=== PATIENT | female | born 1975 | race Caucasian/White ===

== ENCOUNTER 2020-11-01 13:35 | Emergency (ER) | payer OTHER ==
[~2020-11-01] VITALS: Ht 167.6 cm; Wt 77.6 kg
[2020-11-01] MEDS ORDERED: COZAAR25 MG (13:47)
[2020-11-01] MEDS ORDERED: NAPROXEN375 MG PO (17:32)
[2020-11-01] MEDS ORDERED: CLEOCIN HCL300 MG PO (17:32)
[2020-11-01] MEDS ORDERED: INTESTINEX680 M2 PO (18:25)
== END 2020-11-01 20:12 | disposition home or self-care (01) ==
LOC: ER 13:35
DX: L02.214 Cutaneous abscess of groin (principal); R50.9 Fever, unspecified

== ENCOUNTER 2021-01-03 10:42 | Emergency (ER) | payer OTHER ==
[~2021-01-03] VITALS: Ht 167.6 cm; Wt 81.2 kg
[~2021-01-03 10:42] MED LIST: CLEOCIN HCL300 MG PO; COZAAR25 MG; INTESTINEX680 M2 PO; NAPROXEN375 MG PO
[2021-01-03] MEDS ORDERED: FLAGYL500MG PO (17:24)
[2021-01-03] MEDS ORDERED: PEPCID AC20 MG PO (17:24)
[2021-01-03] MEDS ORDERED: LOPERAMIDE2 M1 PO (17:24)
[2021-01-03] MEDS ORDERED: LEVALBUTER1.25 MG/0. IH (17:24)
[2021-01-03] MEDS ORDERED: CIPRO500 MG PO (17:24)
[2021-01-03] MEDS ORDERED: INTESTINEX680 M1 PO (17:24)
== END 2021-01-03 18:00 ==
LOC: ER 10:42
DX: K52.9 Noninfective gastroenteritis and colitis, unspecified (principal)

== ENCOUNTER 2021-04-02 07:19 | Day surgery (SDC) | payer OTHER ==
[~2021-04-02 07:19] MED LIST changes: +CIPRO500 MG PO; +FLAGYL500MG PO; +INTESTINEX680 M1 PO; +LEVALBUTER1.25 MG/0. IH; +LOPERAMIDE2 M1 PO; +PEPCID AC20 MG PO
[2021-04-02] MEDS ORDERED: IBU600 MG PO (11:47)
== END 2021-04-02 13:45 | disposition home or self-care (01) ==
LOC: CIR.AMB 07:19
PROVIDERS: ATTEND Obstetrics & Gynecology Gynecology
DX: N84.0 Polyp of corpus uteri (principal); N72 Inflammatory disease of cervix uteri; Z20.822 Contact with and (suspected) exposure to COVID-19

== ENCOUNTER 2021-10-02 23:26 | Emergency (ER) | payer OTHER ==
[~2021-10-02] VITALS: Ht 167.6 cm; Wt 74.8 kg
[~2021-10-02 23:26] MED LIST changes: +IBU600 MG PO
[2021-10-03] MEDS ORDERED: KETO10TA2 PO ×2 (05:00→05:01)
[2021-10-03] MEDS ORDERED: CEPHALEXIN500 MG PO (05:01)
== END 2021-10-03 05:07 ==
LOC: ER 23:26
DX: N39.0 Urinary tract infection, site not specified (principal); R10.2 Pelvic and perineal pain; I10 Essential (primary) hypertension

== ENCOUNTER 2022-01-28 02:45 | Inpatient (IN) | payer OTHER ==
[~2022-01-28] VITALS: Ht 167.6 cm; Wt 81.6 kg
[~2022-01-28 02:45] MED LIST changes: +CEPHALEXIN500 MG PO; +KETO10TA2 PO
--- NOTE | 2022-01-28 03:00 | NUR ---
PTE VERBALIZA TENER LACEY DOLOR ABDOMINAL Y DOLOR DE ESPALDA MEDIA DESDE HOY DE [place] DE LA [address] [place]. PTE SE OBSERVA ALERTA Y ORIENTADO X3. PTE VERBALIZA QUE ELIN NAUSEAS
--- NOTE | 2022-01-28 04:41 | NUR ---
PACIENTE ALERTA Y ORIENTADA X3. SE ORIENTA SOBRE TX A RECIBRI Y REFIRIO ENTENDER. SE ADMINISTRA MEDICAMENTOS ORDENADOS POR MD. SE REALIZA MUESTRAS DE LABORATORIO BAJO MEDIDAS ASEPTICAS.
--- NOTE | 2022-01-28 07:27 | NUR ---
PTE ALERTA,ESTABLE Y ORIENTADA.SE EDUCA SOBRE EL TRATAMIENTO QUE RECIBIRA EN EL HOSPITAL Y ESTA REFIERE ENTENDER
[2022-02-03] MEDS ORDERED: LOSARTAN POTASS25 MG PO (10:14)
[2022-02-03] MEDS ORDERED: CIPRO500 MG PO ×2 (10:15→10:31)
[2022-02-03] MEDS ORDERED: METRONIDAZOLE500 MG PO ×2 (10:15→10:31)
== END 2022-02-03 14:13 | disposition home or self-care (01) | DRG 446 ==
LOC: ER 02:45 → MEDI 14:37
PROVIDERS: ADMIT Internal Medicine; ATTEND Internal Medicine
PROC: 02HV33Z Insertion of Infusion Device into Superior Vena Cava, Percutaneous Approach (ICD-10-PCS; principal; 2022-01-30)
DX: K80.00 Calculus of gallbladder with acute cholecystitis without obstruction (principal); E86.0 Dehydration; I10 Essential (primary) hypertension

== ENCOUNTER 2022-02-18 12:52 | Outpatient (CLI) | payer OTHER ==
[~2022-02-18 12:52] MED LIST changes: +LOSARTAN POTASS25 MG PO; +METRONIDAZOLE500 MG PO
== END 2022-02-18 12:56 | disposition home or self-care (01) ==
LOC: MAMO-SONO 12:52
PROVIDERS: ATTEND Surgery
DX: N60.11 Diffuse cystic mastopathy of right breast (principal); N60.12 Diffuse cystic mastopathy of left breast

== ENCOUNTER 2022-02-21 06:00 | Day surgery (SDC) | payer OTHER | END 2022-02-21 17:10 | disposition home or self-care (01) | LOC: CIR.AMB 06:00 | PROVIDERS: ATTEND Specialist | DX: K80.10 Calculus of gallbladder with chronic cholecystitis without obstruction (principal); Z20.822 Contact with and (suspected) exposure to COVID-19; I10 Essential (primary) hypertension ==

== ENCOUNTER 2022-05-14 13:47 | Outpatient (CLI) | payer OTHER | END 2022-05-14 13:50 | disposition home or self-care (01) | LOC: SONOGRAMA 13:47 | PROVIDERS: ATTEND Obstetrics & Gynecology Gynecology | DX: N92.1 Excessive and frequent menstruation with irregular cycle (principal) ==

== ENCOUNTER 2023-03-19 11:20 | Emergency (ER) | payer OTHER ==
[~2023-03-19] VITALS: Ht 167.6 cm; Wt 79.4 kg
[2023-03-19 13:19] LABS: HEMATOCRIT 38.9 % (36.0-45.00); MEAN CORPUSCULAR HEMOGLOBIN 29.1 pg (27.00-32.0); MEAN CORPUSCULAR HGB CONC 33.5 g/dl (32.0-36.0); PLATELET COUNT 236 K/uL (150-450); RED BLOOD COUNT 4.47 M/uL (4.00-6.00); RED CELL DISTRIBUTION WIDTH 13.6 % (11.5-14.5)
[2023-03-19] MEDS ORDERED: ZYRTEC10 MG PO (15:10)
[2023-03-19] MEDS ORDERED: ZITHROMAX500 MG PO (15:10)
[2023-03-19] MEDS ORDERED: TUSNEL LIQUID178 ML PO (15:10)
== END 2023-03-19 15:47 | disposition home or self-care (01) ==
LOC: ER 11:20
PROVIDERS: General Practice
DX: B34.9 Viral infection, unspecified (principal)

== ENCOUNTER 2023-05-07 09:45 | Outpatient (CLI) | payer OTHER ==
[~2023-05-07 09:45] MED LIST changes: +TUSNEL LIQUID178 ML PO; +ZITHROMAX500 MG PO; +ZYRTEC10 MG PO
== END 2023-05-07 09:47 | disposition home or self-care (01) ==
LOC: MAMO-SONO 09:45
PROVIDERS: ATTEND Obstetrics & Gynecology Gynecology
DX: N60.11 Diffuse cystic mastopathy of right breast (principal); N60.12 Diffuse cystic mastopathy of left breast

== ENCOUNTER → 2023-05-23 12:56 | Outpatient (CLI) | payer OTHER ==
[2023-05-23 14:14] LABS: HEMATOCRIT 38.4 % (36.0-45.00); HEMOGLOBIN 12.9 g/dL (12.0-15.00); MEAN CELL VOLUME 86.7 fL (80.00-100.00); MEAN CORPUSCULAR HEMOGLOBIN 29.2 pg (27.00-32.0); MEAN CORPUSCULAR HGB CONC 33.6 g/dl (32.0-36.0); PLATELET COUNT 217 K/uL (150-450); RED BLOOD COUNT 4.43 M/uL (4.00-6.00); RED CELL DISTRIBUTION WIDTH 13.8 % (11.5-14.5)
[2023-05-23 14:18] LABS: URINE APPEARANCE Clear; URINE BILIRRUBIN Negative (NEGATIVE); URINE BLOOD Small; URINE COLOR Yellow; URINE GLUCOSE Negative (NEGATIVE); URINE LEUKOCYTE Negative; URINE NITRATE Negative; URINE PROTEIN Negative (NEGATIVE); URINE UROBILINOGEN 0.2 E.U./dl
[2023-05-23 14:21] LABS: URINE BACTERIA 7.5 uL (0.0-1933); URINE EPITHELIAL CELLS 3.2 uL (0.0-38.8); URINE RBC 62.6 uL (0.0-20.8); URINE WBC 4.4 uL (0.0-23.2)
[2023-05-23 14:50] LABS: ALBUMIN 4.1 gm/dL (3.4-5.0); BILIRUBIN TOTAL 0.69 mg/dL (0.3-1.2); CALCIUM 8.9 mg/dL (8.5-10.1); CHOL HDL RATIO 3.5 (0-5.0); CREATININE SERUM 0.68 mg/dL (0.55-1.02); GFR 92.74; GLOBULINA 3.4 G/DL (2.4-3.5); POTASSIUM 3.93 mEq/L (3.5-5.1); TOTAL PROTEIN 7.5 gm/dL (6.4-8.2); TSH 0.874 uIU/mL (0.358-3.74)
== END | disposition home or self-care (01) ==
LOC: LAB 12:56
PROVIDERS: ATTEND Obstetrics & Gynecology Gynecology
DX: D64.9 Anemia, unspecified (principal); E03.9 Hypothyroidism, unspecified; E55.9 Vitamin D deficiency, unspecified; E78.5 Hyperlipidemia, unspecified; Z12.11 Encounter for screening for malignant neoplasm of colon; N39.0 Urinary tract infection, site not specified; Z11.3 Encounter for screening for infections with a predominantly sexual mode of transmission; N92.1 Excessive and frequent menstruation with irregular cycle

== ENCOUNTER 2023-05-23 13:25 | Outpatient (CLI) | payer OTHER | END 2023-05-23 13:27 | disposition home or self-care (01) | LOC: SONOGRAMA 13:25 | PROVIDERS: ATTEND Obstetrics & Gynecology Gynecology | DX: N92.1 Excessive and frequent menstruation with irregular cycle (principal) ==

== ENCOUNTER → 2023-05-29 13:59 | Outpatient (CLI) | payer OTHER ==
[2023-05-29 14:42] LABS: ob NEGATIVE (NEGATIVE)
== END | disposition home or self-care (01) ==
LOC: LAB 13:59
PROVIDERS: ATTEND Obstetrics & Gynecology Gynecology
DX: D64.9 Anemia, unspecified (principal); E03.9 Hypothyroidism, unspecified; E55.9 Vitamin D deficiency, unspecified; E78.5 Hyperlipidemia, unspecified; Z12.11 Encounter for screening for malignant neoplasm of colon; N39.0 Urinary tract infection, site not specified; Z11.3 Encounter for screening for infections with a predominantly sexual mode of transmission

== ENCOUNTER 2024-01-16 09:46 | Emergency (ER) | payer OTHER ==
[~2024-01-16] VITALS: Ht 167.6 cm; Wt 73.9 kg
[2024-01-16] MEDS ORDERED: DEXAMETHASONE SODIUM PHOSPHATE 4 MG/ML VIAL IM STA (10:12)
== END 2024-01-16 13:54 | disposition home or self-care (01) ==
LOC: ER 09:46
DX: R42 Dizziness and giddiness (principal); I10 Essential (primary) hypertension

== ENCOUNTER 2024-05-21 08:08 | Outpatient (CLI) | payer OTHER ==
[2024-05-21 09:15] LABS: HEMATOCRIT 39.4 % (36.0-45.00); HEMOGLOBIN 12.9 g/dL (12.0-15.00); MEAN CORPUSCULAR HEMOGLOBIN 29.2 pg (27.00-32.0); MEAN CORPUSCULAR HGB CONC 32.8 g/dl (32.0-36.0); PLATELET COUNT 265 K/uL (150-450); RED BLOOD COUNT 4.42 M/uL (4.00-6.00); RED CELL DISTRIBUTION WIDTH 13.6 % (11.5-14.5)
[2024-05-21 09:16] LABS: URINE APPEARANCE Clear; URINE BILIRRUBIN Negative (NEGATIVE); URINE BLOOD Moderate; URINE COLOR Yellow; URINE GLUCOSE Negative (NEGATIVE); URINE KETONE Negative (NEGATIVE); URINE LEUKOCYTE Small; URINE NITRATE Negative; URINE PROTEIN Negative (NEGATIVE); URINE UROBILINOGEN 0.2 E.U./dl
[2024-05-21 09:20] LABS: URINE BACTERIA 324.3 uL (0.0-1933); URINE EPITHELIAL CELLS 36.7 uL (0.0-38.8); URINE RBC 38.5 uL (0.0-20.8); URINE WBC 108.1 uL (0.0-23.2)
[2024-05-21 09:41] LABS: INR 0.97; PARTIAL THROMBOPLASTIN TIME 31.9 SECONDS (22.0-34.0); PROTHROMBIN TIME 10.6 SECONDS (9.0-11.5)
[2024-05-21 10:36] LABS: ALBUMIN 3.9 gm/dL (3.4-5.0); BILIRUBIN TOTAL 0.42 mg/dL (0.3-1.2); CALCIUM 8.7 mg/dL (8.5-10.1); CHOL HDL RATIO 2.7 (0-5.0); CREATININE SERUM 0.75 mg/dL (0.55-1.02); GFR 82.48; GLOBULINA 3.6 G/DL (2.4-3.5); POTASSIUM 3.81 mEq/L (3.5-5.1); TOTAL PROTEIN 7.5 gm/dL (6.4-8.2); TSH 1.21 uIU/mL (0.358-3.74)
[2024-05-24 09:16] LABS: FOLLICLE STIMULATING HORMONE 8.1 mIU/mL (.); PROGESTERONA < 0.1 ng/mL (.)
== END 2024-05-21 08:13 | disposition home or self-care (01) ==
LOC: LAB 08:08
PROVIDERS: ATTEND Obstetrics & Gynecology Gynecology
DX: D64.9 Anemia, unspecified (principal); E03.9 Hypothyroidism, unspecified; E55.9 Vitamin D deficiency, unspecified; E78.5 Hyperlipidemia, unspecified; Z12.11 Encounter for screening for malignant neoplasm of colon; N92.1 Excessive and frequent menstruation with irregular cycle

== ENCOUNTER 2024-05-26 08:22 | Outpatient (CLI) | payer OTHER | END 2024-05-26 08:28 | disposition home or self-care (01) | LOC: MAMO-SONO 08:22 | PROVIDERS: ATTEND Obstetrics & Gynecology Gynecology | DX: N60.11 Diffuse cystic mastopathy of right breast (principal); N60.12 Diffuse cystic mastopathy of left breast ==

== ENCOUNTER 2024-05-27 13:55 | Outpatient (CLI) | payer OTHER ==
[2024-05-27 14:18] LABS: ob NEGATIVE (NEGATIVE)
== END 2024-05-27 13:58 | disposition home or self-care (01) ==
LOC: LAB 13:55
PROVIDERS: ATTEND Obstetrics & Gynecology Gynecology
DX: D64.9 Anemia, unspecified (principal); E03.9 Hypothyroidism, unspecified; E55.9 Vitamin D deficiency, unspecified; E78.5 Hyperlipidemia, unspecified; Z12.11 Encounter for screening for malignant neoplasm of colon; N92.1 Excessive and frequent menstruation with irregular cycle

== ENCOUNTER 2024-05-27 20:36 | Emergency (ER) | payer OTHER ==
[~2024-05-27] VITALS: Ht 167.6 cm; Wt 68.0 kg
[2024-05-27] MEDS ORDERED: DEXAMETHASONE SODIUM PHOSPHATE 4 MG/ML VIAL IM STA (23:18)
[2024-05-27] MEDS ORDERED: KETOROLAC TROMETHAMINE 60 MG VIAL IM STA (23:18)
[2024-05-27] MEDS ORDERED: ORPHENADRINE CITRATE 30 MG/ML AMPUL IM STA (23:18)
[2024-05-27] MEDS ORDERED: ACETAMINOPHEN WITH CODEINE 1 UDTAB TABLET PO STA (23:19)
== END 2024-05-27 23:51 | disposition home or self-care (01) ==
LOC: ER 20:38
DX: M62.830 Muscle spasm of back (principal)